=== PATIENT | male | born 1945 | race Caucasian/White ===

== ENCOUNTER 2023-01-06 10:43 | Inpatient (IN) ==
[2023-01-06] MEDS ORDERED: Lactated Ringers 1000 ml BAG 1,000 ML IV ONE (12:26)
[2023-01-06 12:31] LABS: ABS Lymphocytes 0.5 10^3/ul (1.0-4.8); ABS Monocytes 0.6 10^3/ul (0-0.8); ABS Neutrophils 4.4 10^3/ul (1.5-7.7); Eosinophil % 0.2 %; Hematocrit 37 % (42-52); Hemoglobin 11.8 g/dL (14.0-18.0); Lymphocyte % 9.4 %; Mean Corpuscular HGB Conc 32 g/dL (31-36); Mean Corpuscular Hemoglobin 29 pg (27-31); Mean Corpuscular Volume 90 fL (80-94); Platelet Count 177 10^3/uL (150-450); Red Blood Count 4.05 10^6 /uL (4.18-5.48); Red Cell Distribution Width 15 % (10-15); White Blood Count 5.5 10^3/uL (3.5-10.8)
[2023-01-06 12:40] LABS: Activated Partial Thrombo Time 33.1 seconds (26.0-38.0); INR 1.4 (0.88-1.18)
[2023-01-06 12:56] LABS: High Sens Troponin Baseline 5 pg/mL (<20)
[2023-01-06 13:15] LABS: ALT 23 U/L (7-52); AST 34 U/L (13-39); Albumin 3.7 g/dL (3.2-5.2); Albumin/Globulin Ratio 1.2 (1-3); Alkaline Phosphatase 56 U/L (35-149); Blood Urea Nitrogen 40 mg/dL (6-24); C Reactive Protein 228.79 mg/L (<8.01); CO2 Carbon Dioxide 29 mmol/L (22-32); Calcium 10.1 mg/dL (8.6-10.3); Chloride 110 mmol/L (101-111); Creatinine, Serum 1.11 mg/dL (0.67-1.17); Globulin 3.2 g/dL (2-4); Glucose 300 mg/dL (70-100); Potassium 4.3 mmol/L (3.5-5.0); Total Protein 6.9 g/dL (6.4-8.9); eGFR CKD-EPI 68.8 (>60)
[2023-01-06 13:17] LABS: Anion Gap 7 mmol/L (2-11); Sodium 146 mmol/L (135-145)
[2023-01-06 13:51] LABS: Urine Appearance Turbid; Urine Bilirubin Negative (Negative); Urine Blood 2+ (Negative); Urine Color Amber; Urine Glucose 3+(>=500 mg/dL) (Negative); Urine Ketones Trace (Negative); Urine Nitrite Positive (Negative); Urine Protein 2+(100 mg/dL) (Negative); Urine Specific Gravity 1.022 (1.002-1.030); Urine Urobilinogen Negative (Negative)
[2023-01-06 13:58] LABS: Urine Bacteria 1+ (Absent); Urine Red Blood Cell 3+(>10/hpf) (Absent); Urine White Blood Cell 3+(>20/hpf) (Absent); Urine Yeast Present (Absent)
[2023-01-06 14:09] LABS: High Sensitivity Troponin 1 Hr 7 pg/mL (<20)
[2023-01-06] MEDS ORDERED: Iodixanol (CONTRAST) 320 MG/ML 100 ML SDV IV ONE (15:17)
[2023-01-06] MEDS ORDERED: Polyethylene Glycol 3350 17 GM PACKET PO PRN (17:04)
[2023-01-06] MEDS ORDERED: Senna TAB 8.6 mg TAB PO PRN (17:04)
[2023-01-06] MEDS ORDERED: Magnesium Hydroxide LIQ 30 ML UDC PO PRN (17:04)
[2023-01-06 17:36] LABS: Magnesium 1.7 mg/dL (1.9-2.7)
[2023-01-06] MEDS ORDERED: Magnesium Sulfate IV 3 GM in NS 0.9% 100 ml BAG 100 ML IVPB ONE (17:49)
[2023-01-06] MEDS ORDERED: Acetaminophen IV 1 GM/100ML 1,000 MG/100 ML BAG IV PRN (17:51)
[2023-01-06] MEDS ORDERED: Dextrose 50% Syringe 50 ml 25 GM/50 ML SYRINGE IV PUSH PRN (17:53)
[2023-01-06] MEDS ORDERED: Lactated Ringers 1000 ml BAG 1,000 ML IV SCH (18:00)
[2023-01-06] MEDS ORDERED: D5LR 1000 ml BAG 1,000 ML IV SCH (19:00)
[2023-01-06 19:03] LABS: % Iron Saturation 7 % (15-55); Iron 20 ug/dL (50-212); Total Iron Binding Capacity 270 mcg/dL (250-450); Transferrin 193 mg/dL (203-362); Unsaturated Iron Binding 250 ug/dL
[2023-01-06] MEDS: Enoxaparin 80 MG/0.8 ML SYR SUBCUT SCH (19:18)
[2023-01-06] MEDS: cefTRIAXone 1 gm/50 mL D5W 1 GM/50 ML BAG IV SCH (19:18)
[2023-01-06 19:20] LABS: Ferritin 847.6 ng/mL (24-336)
[2023-01-06 19:25] LABS: Folate > 20.00 ng/mL (5.90-24.80)
[2023-01-06 19:26] LABS: Vitamin B12 292 pg/mL (180-914)
[2023-01-06 22:41] LABS: Calcium 9.4 mg/dL (8.6-10.3); Creatinine, Serum 0.89 mg/dL (0.67-1.17); eGFR CKD-EPI 88.8 (>60)
[2023-01-06] MEDS ORDERED: D5W 1000 ml BAG 1,000 ML IV SCH (23:45)
[2023-01-07 03:27] LABS: ABS Lymphocytes 0.6 10^3/ul (1.0-4.8); ABS Monocytes 0.5 10^3/ul (0-0.8); Eosinophil % 0.9 %; Hematocrit 34 % (42-52); Hemoglobin 10.9 g/dL (14.0-18.0); Lymphocyte % 11.2 %; Mean Corpuscular HGB Conc 32 g/dL (31-36); Mean Corpuscular Hemoglobin 29 pg (27-31); Mean Corpuscular Volume 90 fL (80-94); Mean Platelet Volume 8.8 fL (7.4-10.4); Platelet Count 147 10^3/uL (150-450); Red Blood Count 3.79 10^6 /uL (4.18-5.48); Red Cell Distribution Width 15 % (10-15); White Blood Count 5.2 10^3/uL (3.5-10.8)
[2023-01-07 03:43] LABS: Calcium 9.5 mg/dL (8.6-10.3); Creatinine, Serum 0.92 mg/dL (0.67-1.17); Potassium 3.7 mmol/L (3.5-5.0); eGFR CKD-EPI 86.2 (>60)
[2023-01-07] MEDS ORDERED: D5W 1000 ml BAG 1,000 ML IV SCH ×2 (04:04→08:02)
[2023-01-07] MEDS: Enoxaparin 80 MG/0.8 ML SYR SUBCUT SCH ×2 (06:08→18:08)
[2023-01-07] MEDS: Levothyroxine 100 MCG/5 ML VIAL IV SCH (06:09)
[2023-01-07 06:23] LABS: Calcium 9.3 mg/dL (8.6-10.3); Creatinine, Serum 0.87 mg/dL (0.67-1.17); Potassium 3.7 mmol/L (3.5-5.0); eGFR CKD-EPI 89.4 (>60)
[2023-01-07] MEDS ORDERED: CMCS: Fenofibrate 145 mg TAB (NF) PO SCH (09:00)
[2023-01-07 16:21] LABS: Calcium 9.3 mg/dL (8.6-10.3); Potassium 4.1 mmol/L (3.5-5.0)
[2023-01-07 16:27] LABS: Creatinine, Serum 1.02 mg/dL (0.67-1.17); eGFR CKD-EPI 76.2 (>60)
[2023-01-07] MEDS: cefTRIAXone 1 gm/50 mL D5W 1 GM/50 ML BAG IV SCH (18:07)
[2023-01-07 20:34] LABS: Glucose Confirmatory 429 mg/dL (70-100)
[2023-01-07] MEDS ORDERED: Insulin GLARGINE 100 un/ml 10 ml VIAL SUBCUT SCH (21:00)
[2023-01-07 21:44] LABS: Calcium 8.8 mg/dL (8.6-10.3); Creatinine, Serum 1.08 mg/dL (0.67-1.17); Potassium 3.7 mmol/L (3.5-5.0); eGFR CKD-EPI 71.1 (>60)
[2023-01-08 06:37] LABS: ABS Eosinophils 0.1 10^3/ul (0-0.6); ABS Lymphocytes 0.7 10^3/ul (1.0-4.8); ABS Monocytes 0.5 10^3/ul (0-0.8); ABS Neutrophils 3.7 10^3/ul (1.5-7.7); Eosinophil % 1.6 %; Hematocrit 31 % (42-52); Hemoglobin 10.4 g/dL (14.0-18.0); Lymphocyte % 14.4 %; Mean Corpuscular HGB Conc 34 g/dL (31-36); Mean Corpuscular Hemoglobin 30 pg (27-31); Mean Corpuscular Volume 88 fL (80-94); Mean Platelet Volume 9.1 fL (7.4-10.4); Platelet Count 129 10^3/uL (150-450); Red Blood Count 3.52 10^6 /uL (4.18-5.48); Red Cell Distribution Width 15 % (10-15)
[2023-01-08 06:59] LABS: Creatinine, Serum 0.96 mg/dL (0.67-1.17); Magnesium 1.6 mg/dL (1.9-2.7); Potassium 3.9 mmol/L (3.5-5.0); eGFR CKD-EPI 81.9 (>60)
[2023-01-08 07:10] LABS: INR 1.38 (0.88-1.18)
[2023-01-08] MEDS ORDERED: Magnesium Sulfate IV 3 GM in NS 0.9% 100 ml BAG 100 ML IVPB ONE (07:12)
[2023-01-08] MEDS: Enoxaparin 80 MG/0.8 ML SYR SUBCUT SCH ×2 (07:33→18:07)
[2023-01-08] MEDS: Levothyroxine 100 MCG/5 ML VIAL IV SCH (08:52)
[2023-01-08] MEDS: cefTRIAXone 1 gm/50 mL D5W 1 GM/50 ML BAG IV SCH (18:06)
[2023-01-08] MEDS ORDERED: Insulin GLARGINE 100 un/ml 10 ml VIAL SUBCUT SCH (21:00)
[2023-01-09] MEDS: Enoxaparin 80 MG/0.8 ML SYR SUBCUT SCH (06:19)
[2023-01-09 07:00] LABS: ABS Eosinophils 0.1 10^3/ul (0-0.6); ABS Lymphocytes 0.8 10^3/ul (1.0-4.8); ABS Monocytes 0.4 10^3/ul (0-0.8); ABS Neutrophils 3.7 10^3/ul (1.5-7.7); Eosinophil % 1.9 %; Hematocrit 31 % (42-52); Lymphocyte % 15.8 %; Mean Corpuscular HGB Conc 33 g/dL (31-36); Mean Corpuscular Hemoglobin 29 pg (27-31); Mean Corpuscular Volume 89 fL (80-94); Mean Platelet Volume 9.4 fL (7.4-10.4); Platelet Count 140 10^3/uL (150-450); Red Blood Count 3.45 10^6 /uL (4.18-5.48); Red Cell Distribution Width 15 % (10-15)
[2023-01-09 07:08] LABS: Creatinine, Serum 0.76 mg/dL (0.67-1.17); Magnesium 1.8 mg/dL (1.9-2.7); Potassium 3.8 mmol/L (3.5-5.0); eGFR CKD-EPI 93.2 (>60)
[2023-01-09] MEDS ORDERED: Magnesium Sulfate 2 gm BAG 2 GM/50 ML BAG IVPB ONE (07:09)
[2023-01-09 15:00] VITALS: BP 111/69
== END 2023-01-09 16:25 | DRG 463 ==
LOC: ED 10:43 → EDHOLD 10:43 → SUATTDRO 17:04 → EDHOLD 19:57 → MED 20:12 → SUATTDRO 01-07 14:39
PROVIDERS: ADMIT Internal Medicine; ATTEND Hospitalist